=== PATIENT | female | born 1945 | race Caucasian/White ===

== ENCOUNTER → 2018-08-11 | Outpatient (CLI) | payer MEDICARE, BC ==
[~2018-08-11] MED LIST: ALPR.25 PO; ASPI81CH; CLOP75; DILT120; DULO30 PO; DULO60 PO; HYDSUL200; HYDSUL200 PO; LIVALO2 MG; MECL25 PO; METHOTREXATE; Norvasc2.5 MG PO; OLME20; PANT40 PO; PRAV20; RABE20; Remicade100 MG IV; TRAZ50
== END | disposition home or self-care (01) ==
LOC: PLD 08:21 → LAB SHORT 08:21
DX: D48.5 Neoplasm of uncertain behavior of skin (principal)
CPT/HCPCS: 88305

== ENCOUNTER → 2018-08-26 | Outpatient (CLI) | payer MEDICARE, BC | END | disposition home or self-care (01) | LOC: LAB SHORT 08:14 → PLD 08:14 | DX: C44.42 Squamous cell carcinoma of skin of scalp and neck (principal) | CPT/HCPCS: 88305 ==